=== PATIENT | male | born 1985 | race Caucasian/White ===

== ENCOUNTER 2017-05-30 06:18 | Emergency (ER) | payer MEDICAID ==
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
== END 2017-05-30 07:15 | disposition home or self-care (01) ==
LOC: ER 06:18
DX: F41.9 Anxiety disorder, unspecified (principal)
CPT/HCPCS: Z7502